=== PATIENT | female | born 1980 | race Caucasian/White ===

== ENCOUNTER 2020-01-09 18:56 | Emergency (ER) | payer BC, MEDICAID ==
[~2020-01-09] VITALS: Ht 180.3 cm; Wt 181.8 kg
[2020-01-09] MEDS ORDERED: morphine 4 MG/ML inj SYRINge IV PRN (19:25)
[2020-01-09] MEDS ORDERED: normal saline 1000ML IV soln IVB ONE (19:25)
[2020-01-09] MEDS ORDERED: ondansetron/PF 4mg/2ml inj IV ONE (19:25)
[2020-01-09 19:43] LABS: BASOPHILS # (AUTO) 0.1 X10'3 (0-0.2); BASOPHILS % (AUTO) 0.6 % (0-1); EOSINOPHILS # (AUTO) 0.1 X10'3 (0-0.9); EOSINOPHILS % (AUTO) 1.4 % (0-6); HEMATOCRIT 45.3 % (35.0-45.0); HEMOGLOBIN 15.4 g/dl (12.0-16.0); LYMPHOCYTES # (AUTO) 1.9 X10'3 (1.1-4.8); LYMPHOCYTES % (AUTO) 20.7 % (21-51); MEAN CORPUSCULAR HEMOGLOBIN 28.6 PG (27.0-31.0); MEAN CORPUSCULAR HGB CONC 33.9 g/dL (33.0-36.5); MEAN CORPUSCULAR VOLUME 84.4 FL (78-98); MEAN PLATELET VOLUME 7.9 FL (7.4-10.4); MONOCYTES # (AUTO) 0.5 X10'3 (0-0.9); MONOCYTES % (AUTO) 5.4 % (2-12); NEUTROPHILS # (AUTO) 6.5 X10'3 (1.8-7.7); NEUTROPHILS % (AUTO) 71.9 % (42-75); PLATELET COUNT 222 X10'3 (140-440); RED BLOOD COUNT 5.36 X10'6 (4.20-5.60); RED CELL DISTRIBUTION WIDTH 14.9 % (11.5-14.5)
[2020-01-09 19:57] LABS: ALANINE AMINOTRANSFERASE 47 U/L (12-78); ALBUMIN 3.2 G/DL (3.4-5.0); ALBUMIN/GLOBULIN RATIO 0.8 (1.1-1.5); ALKALINE PHOSPHATASE 100 IU/L (46-116); ANION GAP 9 (8-16); ASPARTATE AMINO TRANSFERASE 32 U/L (10-37); BILIRUBIN,TOTAL 0.5 MG/DL (0.1-1.0); BLOOD UREA NITROGEN 4 MG/DL (7-18); BUN/CREATININE RATIO 5.1 (6.6-38.0); CALCIUM 8.7 MG/DL (8.5-10.1); CHLORIDE 104 MMOL/L (99-107); CREATININE 0.78 MG/DL (0.40-0.90); GLUCOSE 207 MG/DL (70-104); LIPASE 67 U/L (73-393); POTASSIUM 3.8 MMOL/L (3.5-5.1); SODIUM 140 MMOL/L (135-145); TOTAL CARBON DIOXIDE 27.2 MMOL/L (24-32); eGFR 83 ML/MIN
[2020-01-09] MEDS ORDERED: ONDA4TAB6 PO (20:10)
[2020-01-09] MEDS ORDERED: fentaNYL/PF 50MCG/1 ML 2ML syringe IV ONE (20:15)
[2020-01-09] MEDS ORDERED: proCHLORperazine 10 MG/2 ml inj IV ONE (20:15)
[2020-01-09] MEDS ORDERED: diphenhydrAMINE 50 mg/ml inj IV ONE (20:15)
[2020-01-09 20:19] LABS: URINE HCG NEGATIVE (NEG)
[2020-01-09 20:25] LABS: CLARITY,URINE CLEAR (Clear); COLOR,URINE YELLOW (Yellow); GLUCOSE, URINE NEGATIVE (Neg); KETONES,URINE NEGATIVE (Neg); LEUKOCYTE ESTERASE ,URINE NEGATIVE (Neg); NITRITES, URINE NEGATIVE (Neg); OCCULT BLOOD,URINE NEGATIVE (Neg); PROTEIN,URINE TRACE mg/dl (Neg)
[2020-01-09 20:31] LABS: UA COLLECTION TYPE CLN CATCH MIDSTREAM
[2020-01-09 20:32] LABS: BACTERIA,URINE FEW /HPF (Neg); RBC,URINE NONE SEEN /HPF (0-2); SQUAMOUS EPITHELIAL CELL,UR FEW /LPF (FEW); WBC,URINE 0-4 /HPF (0-4)
[2020-01-09 20:50] VITALS: BP 152/91
== END 2020-01-09 20:45 | disposition home or self-care (01) ==
LOC: ER 18:57
DX: K52.89 Other specified noninfective gastroenteritis and colitis (principal); R11.2 Nausea with vomiting, unspecified; R19.7 Diarrhea, unspecified; J44.9 Chronic obstructive pulmonary disease, unspecified; E11.9 Type 2 diabetes mellitus without complications; Z85.9 Personal history of malignant neoplasm, unspecified; Z88.8 Allergy status to other drugs, medicaments and biological substances; Z79.899 Other long term (current) drug therapy
CPT/HCPCS: 36415; 80053; 81001; 81025; 83690; 85025; 96361; 96374; 96375; 99284; J0780; J1200; J2270; J2405; J3010; J7030

== ENCOUNTER 2024-10-25 20:25 | Emergency (ER) | payer BC, MEDICAID ==
[~2024-10-25] VITALS: Ht 177.8 cm; Wt 177.3 kg
[~2024-10-25 20:25] MED LIST: ONDA4TAB6 PO
[2024-10-25 20:36] VITALS: BP 147/59; PULSE 96; RESP 18; TEMP 98.8; O2SAT 99
== END 2024-10-25 23:16 | disposition left against medical advice (07) ==
LOC: ER 20:27
DX: K62.89 Other specified diseases of anus and rectum (principal); Z91.040 Latex allergy status; Z91.013 Allergy to seafood; Z88.2 Allergy status to sulfonamides; Z88.8 Allergy status to other drugs, medicaments and biological substances; Z53.21 Procedure and treatment not carried out due to patient leaving prior to being seen by health care provider

== ENCOUNTER 2024-10-26 16:39 | Emergency (ER) | payer BC, MEDICAID ==
[~2024-10-26] VITALS: Ht 180.3 cm; Wt 177.3 kg
[2024-10-26 18:54] VITALS: BP 133/82; PULSE 95; RESP 18; TEMP 98.5; O2SAT 99
== END 2024-10-26 18:56 | disposition home or self-care (01) ==
LOC: ER 16:40
DX: K64.9 Unspecified hemorrhoids (principal); E11.9 Type 2 diabetes mellitus without complications; J44.9 Chronic obstructive pulmonary disease, unspecified; Z88.2 Allergy status to sulfonamides; Z88.5 Allergy status to narcotic agent; Z88.6 Allergy status to analgesic agent; Z91.030 Bee allergy status; Z88.8 Allergy status to other drugs, medicaments and biological substances
CPT/HCPCS: 99282

== ENCOUNTER 2025-02-20 11:54 | Emergency (ER) | payer BC, MEDICAID ==
[~2025-02-20] VITALS: Ht 180.3 cm; Wt 168.2 kg
[2025-02-20 11:59] VITALS: BP 170/87; PULSE 80; RESP 18; O2SAT 99
--- NOTE | 2025-02-20 12:31 | Physician Documentation ---
History of Present Illness ~ General Chief Complaint: Multiple Medical Complaints Stated Complaint: BLOOD IN URINE Primary Medical Doctor: Katharina Barron History of Present Illness Initial Comments 45-year-old with complaints of blood in urine for 6 weeks has been primary care and does have a neurology referral but also had nausea and vomiting today she states that vomiting is atypical pain response. Patient medically complicated with morbid obesity, oxygen due to pulmonary embolisms and COPD has not quit smoking. Medication Reconciliation Allergies: Coded Allergies: NSAIDS (Non-Steroidal Anti-Inflamma (Verified Allergy, Severe, anaphylaxis, 02/20/25) Sulfa (Sulfonamide Antibiotics) (Verified Allergy, Severe, anaphylaxis, 02/20/25) bee venom protein (honey bee) (Verified Allergy, Severe, anaphylaxis, 02/20/25) shellfish derived (Verified Allergy, Severe, anaphylaxis, 02/20/25) tramadol (Verified Allergy, Severe, anaphylaxis, 02/20/25) metoclopramide (Verified Allergy, Intermediate, makes her go crazy, 02/20/25) latex (Verified Allergy, Mild, hives, 02/20/25) ketorolac (Verified Allergy, Unknown, 02/20/25) Scheduled Ondansetron Hcl (Zofran), 1 TAB PO Q6H Past Medical History Past Medical History: COPD, GI Bleed, Diabetes, *CANCER* Past Surgical History: noncontributory Alcohol Use: None Drug Use: none Lives with: Spouse Lives In: Home Physical Exam Physical Exam Vital Signs: Heart Rate: 80, Respiratory Rate: 18, BP: 170/87, Pulse Oximetry: 99, Weight: 168.180 General Appearance: alert, WD/WN, no apparent distress Chest: no accessory muscle use Cardiovascular: regular rate, rhythm Progress Results/Orders Results/Orders Vital Signs 02/20/25 11:59 Pulse 80 Resp 18 B/P (MAP) 170/87 Pulse Ox 99 Departure Referrals: NO PRIMARY CARE PROVIDER (PCP) TONY PRESTON NP Feb 20, 2025 12:31
== END 2025-02-20 13:06 | disposition left against medical advice (07) ==
LOC: ER 11:55
DX: R31.9 Hematuria, unspecified (principal); J44.9 Chronic obstructive pulmonary disease, unspecified; E11.9 Type 2 diabetes mellitus without complications; Z88.2 Allergy status to sulfonamides; Z91.030 Bee allergy status; Z88.6 Allergy status to analgesic agent; Z88.5 Allergy status to narcotic agent; Z88.8 Allergy status to other drugs, medicaments and biological substances; Z79.899 Other long term (current) drug therapy; Z91.040 Latex allergy status; Z90.13 Acquired absence of bilateral breasts and nipples
CPT/HCPCS: 99282